=== PATIENT | female | born 1970 | race Hispanic/Latino ===

== ENCOUNTER 2017-02-12 12:51 | Observation (INO) | payer BC ==
[2017-02-12 12:59] VITALS: BMI 40.1
--- NOTE | 2017-02-12 13:41 | ED PDOC ---
Arrival/HPI - General Chief Complaint: High Blood Pressure Time Seen by Provider: 02/12/17 13:11 Historian: Patient - History of Present Illness Narrative History of Present Illness (Text): 02/12/17 13:42 A 46 year old female was sent to the emergency department from PMD office, for elevated blood pressure. Patient notes she was at [facility], who sent her to PMD for elevated blood pressure of over 200. Patient also reports some dizziness for the past week and shortness of breath with exertion, but denies any headache , chest pain, leg swelling, nausea, muscle aches or any other complaints at this time. PMD: Dr. Carter Symptom Onset: Sudden Symptom Course: Unchanged Activities at Onset: Rest Associated Symptoms (Text): dizziness and shortness of breath Past Medical History - Provider Review Nursing Documentation Reviewed: Yes - Infectious Disease Hx of Infectious Diseases: None - Reproductive Menopause: Yes - Psychiatric Hx Substance Use: No - Surgical History Hx Thyroidectomy: Yes - Anesthesia Hx Anesthesia: Yes Hx Anesthesia Reactions: No Family/Social History - Physician Review Nursing Documentation Reviewed: Yes Family/Social History: No Known Family HX Smoking Status: Former Smoker Hx Alcohol Use: Yes Frequency of alcohol use: Socially Hx Substance Use: No Allergies/Home Meds Allergies/Adverse Reactions: Allergies Penicillins Allergy (Verified 02/12/17 12:59) SHORTNESS OF BREATH Home Medications: Home Meds Medication Instructions Recorded Confirmed No Known Home Med 02/12/17 02/12/17 Review of Systems - Physician Review All systems were reviewed & negative as marked: Yes - Review of Systems Respiratory: SOB Cardiovascular: absent: Chest Pain Gastrointestinal: absent: Nausea Musculoskeletal: absent: Other (leg swelling, muscle aches) Neurological: Dizziness. absent: Headache Physical Exam - Physical Exam Narrative Physical Exam (Text): 02/12/17 13:40 Head: Atraumatic. Normocephalic. Eyes: PERRL. EOMI. Conjunctivae are not pale. Visual acuity and stone intact. ENT: Mucous membranes are moist and intact. Oropharynx is clear and symmetric. Neck: Supple. Full ROM. No JVD. No lymphadenopathy. No thyroid masses palpated. Cardiovascular: Regular rate. Regular rhythm. Systolic murmur. Distal pulses are 2+ and symmetric. Pulmonary/Chest: No evidence of respiratory distress. Clear to auscultation bilaterally. No wheezing, rales or rhonchi. Abdominal: Soft and non-distended. There is no tenderness. No rebound, guarding, or rigidity. No organomegaly. Good bowel sounds. Back: No CVA tenderness. Extremities: No edema. No cyanosis. No clubbing. Full range of motion in all extremities. No calf tenderness. Skin: Skin is warm and dry. No petechiae. No purpura. Neurological: Alert, awake, and oriented to person, place, time, and situation. Normal speech. No facial droop. No meningeal signs. Motor and sensory exam intact in all extremities. Psychiatric: Good eye contact. Normal interaction, affect, and behavior. Vital Signs Reviewed: Yes Vital Signs Temp Pulse Resp BP Pulse Ox 02/12/17 16:58 86 179/106 H 02/12/17 16:36 88 18 219/118 H 100 02/12/17 15:18 199/112 H 02/12/17 14:57 94 H 18 199/112 H 99 02/12/17 13:44 102 H 229/120 H 02/12/17 13:02 99.4 F 110 H 19 217/142 H 100 Temperature: Afebrile Blood Pressure: Hypertensive Pulse: Tachycardic Respiratory Rate: Normal Appearance: Positive for: Well-Appearing, Non-Toxic, Comfortable Pain Distress: None Mental Status: Positive for: Alert and Oriented X 3 Medical Decision Making ED Course and Treatment: 02/12/17 13:38 Impression: A 46 year old female with elevated blood pressure and some dizziness. Differential Diagnosis included but are not limited to: hyperparathyroidism vs. renal disease vs. hypertensive urgency vs. hypertensive emergency Plan: -- EKG -- chest xray -- Urinalysis -- labs -- Catapres -- Reassess and disposition Progress Notes: Patient reports she hasn't seen PMD or checked blood pressure since 2009. On exam she has no headache or chest pain, but is significantly hypertensive. She states she currently takes no blood pressure medication. She states that she has had some stress with her mother being ill. She is non-toxic appearing. 02/12/17 13:43 EKG: Ordered, reviewed, and independently interpreted the EKG. Rate : 111 BPM Rhythm : Sinus tachycardic Interpretation : Minimum voltage criteria for left ventricular hypertrophy Comparison : No previous EKG for comparison. 02/12/17 14:59 chest xray: Creator : Jason Guajardo MD IMPRESSION: No active disease. 02/12/17 15:15 On reassessment, blood pressure after clonidine was 199/111. Patient is complaining of persistent dizziness, although there are no neurological deficits noted. Currently, heart rate is 98. Plan is to administer dose of Labetalol. 02/12/17 16:50 After Labetalol given, patient's blood pressure remains elevated and still has complaint of dizziness. Due to uncontrolled hypertension, additional Labetalol will be given. Patient will be admitted to telemetry for blood pressure management. I have reviewed with her past diagnosis of thyroid/parathyroid disease. Currently denies headache or muscle aches or GI symptoms. Case reviewed with Dr. Brown covering for PMD Dr. Carter, he accepts patient to his service. Patient agreeable to treatment plan and admission. Risks/side effects of medications reviewed with patient and at bedside. Reassessment Condition: Re-examined, Improving,but remains with symptoms - Lab Interpretations Lab Results: 02/12/17 14:15 02/12/17 14:15 Lab Results 02/12/17 14:15: Sodium 140, Potassium 3.7, Chloride 100, Carbon Dioxide 28, Anion Gap 16, BUN 12, Creatinine 0.8, Est GFR ( Amer) > 60, Est GFR (Non- Af Amer) > 60, Random Glucose 106, Calcium 9.2, Total Bilirubin 0.8, AST 26, ALT 28, Alkaline Phosphatase 128, Lactate Dehydrogenase 462, Total Creatine Kinase 66, Troponin I < 0.01, Total Protein 7.8, Albumin 4.7, Globulin 3.2, Albumin/Globulin Ratio 1.5 02/12/17 14:15: Urine Color Yellow, Urine Appearance Clear, Urine pH 6.5, Ur Specific Ozan 1.020, Urine Protein 30 H, Urine Glucose (UA) Negative, Urine Ketones 15 H, Urine Blood Small H, Urine Nitrate Negative, Urine Bilirubin Negative, Urine Urobilinogen 0.2, Ur Leukocyte Esterase Negative, Urine RBC 1 - 3, Urine WBC 0 - 2, Ur Epithelial Cells 1 - 3, Urine Bacteria Few 02/12/17 14:15: PT 11.1, INR 1.03, APTT 30.3 02/12/17 14:15: WBC 11.0, RBC 4.92, Hgb 14.6, Hct 42.2, MCV 85.8, MCH 29.7, MCHC 34.6, RDW 13.7, Plt Count 285, MPV 9.8, Gran % 73.3 H, Lymph % (Auto) 20.3 L, Clay % (Auto) 5.4, Eos % (Auto) 0.6 L, Baso % (Auto) 0.4, Gran # 8.04 H, Lymph # 2.2, Clay # 0.6, Eos # 0.1, Baso # 0.04 I have reviewed the lab results: Yes - RAD Interpretation Radiology Orders: 02/12/17 13:16 CHEST PORTABLE [RAD] Stat - EKG Interpretation Interpreted by ED Physician: Yes Type: 12 lead EKG - Medication Orders Current Medication Orders: Amlodipine Besylate (Norvasc) 10 mg PO DAILY RUTH Lisinopril (Zestril) 20 mg PO DAILY RUTH Discontinued Medications Amlodipine Besylate (Norvasc) 10 mg PO STAT STA Stop: 02/12/17 17:12 Clonidine HCl (Catapres) 0.2 mg PO ONCE STA Stop: 02/12/17 13:32 Last Admin: 02/12/17 13:44 Dose: 0.2 mg Labetalol HCl (Trandate) 10 mg IV STAT STA Stop: 02/12/17 15:08 Last Admin: 02/12/17 15:18 Dose: 10 mg Labetalol HCl (Trandate) 20 mg IV STAT STA Stop: 02/12/17 16:51 Last Admin: 02/12/17 16:58 Dose: 20 mg Lisinopril (Zestril) 10 mg PO ONCE ONE Stop: 02/12/17 17:13 - Scribe Statement The provider has reviewed the documentation as recorded by the Lorraine Cormier Provider Scribe Attestation: All medical record entries made by the Lorraine were at my direction and personally dictated by me. I have reviewed the chart and agree that the record accurately reflects my personal performance of the history, physical exam, medical decision making, and the department course for this patient. I have also personally directed, reviewed, and agree with the discharge instructions and disposition. Disposition/Present on Arrival - Present on Arrival Any Indicators Present on Arrival: No History of DVT/PE: No History of Uncontrolled Diabetes: No Urinary Catheter: No History of Decub. Ulcer: No History Surgical Site Infection Following: None - Disposition Have Diagnosis and Disposition been Completed?: Yes Diagnosis: Hypertensive urgency, Uncontrolled hypertension Disposition: HOSPITALIZED Disposition Time: 16:05 Patient Plan: Admission, Observation, Telemetry Condition: FAIR Referrals: Kaiden Carter MD [Primary Care Provider] - Follow up with primary Forms: [employer] (Turkmen)
[2017-02-12 14:20] LABS: BASO # 0.04 K/mm3 (0.0-2.0); BASO % 0.4 % (0.0-3.0); EOS # 0.1 (0.0-0.7); EOS % 0.6 % (1.5-5.0); GRAN # 8.04 (1.4-6.5); GRAN % 73.3 % (50.0-68.0); HEMOGLOBIN 14.6 g/dL (12.0-16.0); LYMPH # 2.2 (1.2-3.4); LYMPH % 20.3 % (22.0-35.0); MEAN CELL VOLUME 85.8 fl (80.0-105.0); MEAN CORPUSCULAR HEMOGLOBIN 29.7 pg (25.0-35.0); MEAN CORPUSCULAR HGB CONC 34.6 g/dl (31.0-37.0); MEAN PLATELET VOLUME 9.8 fl (7.0-11.0); MONO # 0.6 (0.1-0.6); MONO % 5.4 % (1.0-6.0); PH,URINE 6.5 (4.7-8.0); PLATELET COUNT 285 10^3/uL (120.0-450.0); RBC 4.92 10^6/uL (3.5-6.1); RED CELL DISTRIBUTION WIDTH 13.7 % (11.5-14.5); URINE APPEARANCE CLEAR (CLEAR); URINE BILIRUBIN NEGATIVE (NEGATIVE); URINE BLOOD SMALL (NEGATIVE); URINE COLOR YELLOW (YELLOW); URINE GLUCOSE (UA) NEGATIVE (NEGATIVE); URINE LEUKOCYTE ESTERASE NEGATIVE Leu/uL (NEGATIVE); URINE NITRATE NEGATIVE (NEGATIVE); URINE PROTEIN 30 mg/dL (<30 mg/dL); URINE UROBILINOGEN 0.2 E.U./dL (<1 E.U./dL)
[2017-02-12 14:31] LABS: URINE BACTERIA FEW (NEG); URINE WBC 0 - 2 /hpf (0-6)
[2017-02-12 14:35] LABS: ALB/GLOB RATIO 1.5 (1.1-1.8); ALBUMIN 4.7 g/dL (3.0-4.8); ALT/SGPT 28 U/L (7-56); AST/SGOT 26 U/L (15-39); BLOOD UREA NITROGEN 12 mg/dL (7-21); CALCIUM 9.2 mg/dL (8.4-10.5); GFR AFRICAN-AMERICAN > 60; GFR NON-AFRICAN AMERICAN > 60
[2017-02-12 14:43] LABS: INR 1.03 (0.93-1.08); PARTIAL THROMBOPLASTIN TIME 30.3 Seconds (23.7-30.8); PROTHROMBIN TIME 11.1 Seconds (9.9-11.8)
[2017-02-12 14:45] LABS: TROPONIN I < 0.01 ng/mL
--- NOTE | 2017-02-12 14:56 | RAD ---
HISTORY: hypertension, dizzy COMPARISON: No prior. FINDINGS: LUNGS: No active pulmonary disease. PLEURA: No significant pleural effusion identified, no pneumothorax apparent. CARDIOVASCULAR: Normal. OSSEOUS STRUCTURES: No significant abnormalities. VISUALIZED UPPER ABDOMEN: Normal. OTHER FINDINGS: None. IMPRESSION: No active disease.
[2017-02-12] MEDS ORDERED: Labetalol 5 mg/ml Inj 20ML IV STA ×2 (15:07→16:50)
[2017-02-12] MEDS ORDERED: Pneumococcal 23-Valent Vaccine IM ONE (20:33)
--- NOTE | 2017-02-12 23:21 | CARD ---
APPROVED REPORT EKG Measurement Heart [id number] <Conclusion> Sinus tachycardia Otherwise normal ECG
[2017-02-13 05:45] VITALS: O2SAT 100
[2017-02-13 12:44] VITALS: BP 162/90; PULSE 85; RESP 20; TEMP 98.3
--- NOTE | 2017-02-13 13:52 | HP ---
CHIEF COMPLAINT AND HISTORY OF PRESENT ILLNESS: This is a 46-year-old female who is coming into the hospital with uncontrolled hypertension. 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 The patient was sent to her primary care doctor Dr. Carter. Dr. Carter sent her to the ER for further management. She was having headaches. The patient has not seen Dr. Carter for many years. She also was complaining of dizziness. She gets short of breath with exertion. She has no fevers or chills. No nausea. No vomiting. No blurred vision. No chest pain. No weakness in the arms or legs. No abdominal pain. No dysuria or frequency. No nocturia. She says that her father had hypertension. She is under lot of stress because her mother has lung cancer. REVIEW OF SYSTEMS: All other review of symptoms are within normal limits, except what was mentioned. ALLERGIES: PENICILLIN. MEDICATIONS: None. FAMILY HISTORY: Father had hypertension. Mother has lung cancer. SOCIAL HISTORY: She is a former smoker. She drinks socially. PHYSICAL EXAMINATION: VITAL SIGNS: She has a temperature 99.4, pulse of 110, respirations 19, blood pressure 217/144 in the emergency room, after her treatment she was brought down to 179/106. Height is 5 feet 4 inches and weight 234 pounds. BMI is 40.2. GENERAL: The patient lying in bed, uncomfortable, and in no acute distress. HEENT: Atraumatic and normocephalic. Anicteric sclerae. Moist mucosa. [place] conjunctivae. No oral lesions. NECK: No JVD, anterior and posterior adenopathy, thyromegaly, or bruits. CARDIOVASCULAR: S1 and S2 regular. No murmur, rubs, or gallop. LUNGS: Clear to auscultation bilaterally. No wheezes, rales, or rhonchi. ABDOMEN: Bowel sounds are positive. Soft, nontender and nondistended. No hepatosplenomegaly. No rebound and no guarding EXTREMITIES: No cyanosis, clubbing, or edema. NEUROLOGIC: No facial asymmetry. Tongue is midline. No vulva deviation. Power is 5/5 upper extremity and lower extremity. Sensation intact in upper extremity and lower extremity. PSYCHIATRIC: She is awake, alert and oriented x3. No anxiety or depression. She has normal affect. GENITOURINARY: No CVA tenderness. VASCULAR: 2+ pulses in the carotid pulses and pedal pulses. SKIN: No erythema or nodules SPINE: Shows normal curvature. EXTREMITIES: No cyanosis and clubbing, no edema. LABORATORY DATA: White count of 11.0, hemoglobin 14.6, and INR is 1.03. Sodium is 140, potassium 3.7, troponin 0.01. Urine shows protein is 30, blood is small, nitrites are negative. Chest x-ray done shows no active disease. EKG shows sinus tachycardia with a heart rate of 111. ASSESSMENT: 1. Hypertensive urgency. 2. Obese with a body mass index of 40. PLAN: The patient has improvement of her symptoms. She says her headache and dizziness have improved. She was given clonidine and labetalol in the emergency room. She was started on lisinopril and amlodipine. I have added hydrochlorothiazide for her medications. She is advised to follow up with primary care doctor Dr. Carter. Her blood pressure this morning is in the 140s. She was also given information on low salt diet. She is going to be discharged home to follow up as an outpatient. CONDITION: Stable. ACTIVITIES: Increased as tolerated. Flavio Gambino MD
== END 2017-02-13 13:16 | disposition home or self-care (01) ==
LOC: ED 12:51 → ERH 17:29 → 2RNO 19:21
PROVIDERS: ADMIT Internal Medicine Nephrology; ATTEND Internal Medicine Nephrology
DX: I16.0 Hypertensive urgency (principal); I10 Essential (primary) hypertension; E66.9 Obesity, unspecified; Z68.41 Body mass index [BMI] 40.0-44.9, adult; R00.0 Tachycardia, unspecified; Z80.1 Family history of malignant neoplasm of trachea, bronchus and lung; Z82.49 Family history of ischemic heart disease and other diseases of the circulatory system; Z87.891 Personal history of nicotine dependence
CPT/HCPCS: 71010; 80053; 81001; 82550; 83615; 84484; 85025; 85610; 85730; 93005; 99285; G0378